=== PATIENT | male | born 1955 | race Hispanic/Latino ===

== ENCOUNTER 2016-11-21 09:43 | Emergency (ER) | payer OTHER ==
[2016-11-21 09:56] VITALS: BMI 27.1
[2016-11-21 09:57] VITALS: RESP 18
[2016-11-21] MEDS ORDERED: DiphenhydrAMINE 50 mg/ml Inj IVP STA (10:34)
--- NOTE | 2016-11-21 10:34 | C.PDOC ---
History Of Present Illness The patient with a PMHx of Afib, reports 3 day history of dizziness, which is described as the room spinning. Patient states that the symptoms are associated with nausea and have worsened today prompting visit. Denies fever, vomiting, diarrhea, head injury/headache, LOC, abdominal pain, back pain, chest pain, SOB , numbness, vision change, or weakness. Time Seen by Provider: 11/21/16 10:24 Chief Complaint (Nursing): Dizziness/Lightheaded Past Medical History Vital Signs: Last Vital Signs Temp 98 F 11/21/16 12:57 Pulse 60 11/21/16 12:57 Resp 18 11/21/16 12:57 BP 111/65 11/21/16 12:57 Pulse Ox 96 11/21/16 12:57 - Medical History PMH: Atrial Fibrillation, HTN Family History: States: No Known Family Hx - Social History Hx Alcohol Use: Yes Hx Substance Use: No - Immunization History Hx Tetanus Toxoid Vaccination: No Hx Influenza Vaccination: No Hx Pneumococcal Vaccination: No Review Of Systems Except As Marked, All Systems Reviewed And Found Negative. Physical Exam - Physical Exam Appears: Non-toxic Skin: Normal Color, Warm, Dry, No Rash Head: Atraumatic, Normacephalic Eye(s): bilateral: Normal Inspection, PERRL, EOMI, Other (No nystagmus) Ear(s): Bilateral: Normal Nose: Normal Throat: Normal, No Erythema, No Exudate Neck: Normal, Normal ROM, Supple Chest: Symmetrical, No Tenderness Cardiovascular: Rhythm Regular, No Friction Rub, No Murmur Respiratory: Normal Breath Sounds, No Stridor, No Wheezing Gastrointestinal/Abdominal: Normal Exam, Soft, No Tenderness Back: Normal Inspection, No CVA Tenderness Extremity: Normal ROM, No Pedal Edema, No Deformity Neurological/Psych: Normal Speech, Normal Cognition, Normal Motor, Normal Sensation Gait: Steady ED Course And Treatment - Laboratory Results Result Diagrams: 11/21/16 11:03 11/21/16 10:35 Lab Interpretation: Normal ECG: Interpreted By Me ECG Rhythm: Sinus Rhythm ECG Interpretation: Normal Interpretation Of ECG: normal axis Rate From EC (bpm) O2 Sat by Pulse Oximetry: 97 (on RA) Pulse Ox Interpretation: Normal Medical Decision Making Medical Decision Making: Initial Plan: --Head w/o Contrast [CT] --EKG --Drug screen, Urine --Benadryl 25 mg IVP --Reglan 10 mg IVP --Urinalysis On re-exam, the patient reports improvement of symptoms. Lungs are CTA, heart is RRR, abdomen is soft, non-tender Abdomen is soft, non-tender and patient is tolerating PO well. Ambulatory in the ED with steady gait. Follow up with the medical doctor within 1-2 days. Return if worsened. Scribe Attestation Written by Navid Leal acting as a scribe for Alexia ROD All medical record entries made by the Scribe were at my direction and personally dictated by me. I have reviewed the chart and agree that the record accurately reflects my personal performance of the history, physical exam, medical decision making, and the department course for this patient. I have also personally directed, reviewed, and agree with the discharge instructions and disposition. Disposition - Disposition Referrals: Adriano Thibodeaux MD [Medical Doctor] - Disposition: HOME/ ROUTINE Disposition Time: 12:20 Condition: GOOD Additional Instructions: Follow up with the medical doctor within 1-2 days. Return if worsened. Prescriptions: Meclizine HCl 25 mg PO TID PRN #15 tablet PRN Reason: Dizziness Instructions: Vertigo (ED) Forms: [employer] (Hungarian) - Clinical Impression Clinical Impression: Dizziness
[2016-11-21] MEDS ORDERED: DiphenhydrAMINE 50 mg/ml Inj ONE (10:42)
[2016-11-21 11:02] LABS: BASO % 0.2 % (0.0-2.0); EOS # 0.2 K/uL (0.0-0.7); EOS % 2.7 % (0.0-4.0); HEMATOCRIT 45.5 % (35.0-51.0); LYMPH # 0.8 K/uL (1.0-4.3); LYMPH % 14.8 % (20.0-40.0); MEAN CELL VOLUME 92.4 fL (80.0-94.0); MEAN CORPUSCULAR HEMOGLOBIN 32.2 pg (27.0-31.0); MEAN CORPUSCULAR HGB CONC 34.8 g/dL (33.0-37.0); MEAN PLATELET VOLUME 8.8 fL (7.2-11.7); MONO # 0.6 K/uL (0.0-0.8); MONO % 10.4 % (0.0-10.0); WHITE BLOOD COUNT 5.7 K/uL (4.8-10.8)
[2016-11-21 11:08] LABS: CHLORIDE 102 mmol/L (98-107); SODIUM 142 mmol/L (132-148)
[2016-11-21 11:10] LABS: ALKALINE PHOSPHATASE 67 U/L (38-126); AST/SGOT 18 U/L (17-59); BILIRUBIN,TOTAL 0.6 mg/dL (0.2-1.3); CARBON DIOXIDE 25 mmol/L (22-30); GFR AFRICAN-AMERICAN > 60; TOTAL PROTEIN 6.8 g/dL (6.3-8.3)
[2016-11-21 11:11] LABS: ALB/GLOB RATIO 1.5 (1.0-2.1); ALT/SGPT 39 U/L (21-72); BLOOD UREA NITROGEN 18 mg/dL (9-20); CALCIUM 9.2 mg/dl (8.6-10.4); GLUCOSE,RANDOM 104 mg/dL (75-110)
--- NOTE | 2016-11-21 11:36 | CT ---
PROCEDURE: CT HEAD WITHOUT CONTRAST. HISTORY: dizziness, lightheadedness COMPARISON: None available. TECHNIQUE: Axial computed tomography images were obtained through the head/brain without intravenous contrast. Radiation dose: Total exam DLP = 1008 mGy-cm. This CT exam was performed using one or more of the following dose reduction techniques: Automated exposure control, adjustment of the mA and/or kV according to patient size, and/or use of iterative reconstruction technique. FINDINGS: HEMORRHAGE: No intracranial hemorrhage. BRAIN: No mass effect or edema. Scattered focal lucencies in the subcortical and periventricular white matter suggestive for chronic microvascular ischemic change. VENTRICLES: Unremarkable. No hydrocephalus. CALVARIUM: Unremarkable. PARANASAL SINUSES: Large 2.0 x 2.0 centimeter mucosal retention cyst and or polyp in the right maxillary sinus. MASTOID AIR CELLS: Unremarkable as visualized. No inflammatory changes. OTHER FINDINGS: None. IMPRESSION: Mild chronic microvascular ischemic change. Large 2 centimeter mucosal retention cyst and or polyp in the right maxillary sinus. If focal neurologic deficit persists, consider further evaluation with MRI.
[2016-11-21 11:54] LABS: RBC URINE 2 /hpf (0-3); URINE BILIRUBIN NEGATIVE (NEGATIVE); URINE BLOOD NEGATIVE (NEGATIVE); URINE COLOR Yellow (YELLOW); URINE GLUCOSE (UA) NORMAL (Normal); URINE KETONE NEGATIVE (NEGATIVE); URINE LEUKOCYTE ESTERASE NEG Leu/uL (Negative); URINE PROTEIN NEGATIVE (NEGATIVE); URINE UROBILINOGEN NORMAL mg/dL (0.2-1.0)
[2016-11-21 12:59] VITALS: BP 111/65; PULSE 60; TEMP 98
[2016-11-21 17:58] VITALS: O2SAT 97
--- NOTE | 2016-11-23 21:58 | CARD ---
APPROVED REPORT EKG Measurement Heart [id number] <Conclusion> Sinus rhythm with 1st degree AV block Otherwise normal ECG
== END 2016-11-21 12:25 | disposition home or self-care (01) ==
LOC: C.ER 09:43
DX: R42 Dizziness and giddiness (principal)
CPT/HCPCS: 70450; 80053; 80324; 80345; 80346; 80349; 80353; 80358; 80361; 81001; 83992; 85025; 93005; 96374; 96375; 99285; J1200; J2765

== ENCOUNTER 2018-07-28 06:26 | Day surgery (SDC) | payer OTHER ==
[2018-07-27 11:30] VITALS: BMI 27.4
[2018-07-28] MEDS ORDERED: Lactated Ringer's 500 ML IV ONE (08:05)
[2018-07-28] MEDS ORDERED: Propofol 10 mg/ml Inj (20 ML) ONE ×2 (08:09→08:24)
[2018-07-28 08:56] VITALS: TEMP 98
[2018-07-28 08:57] VITALS: O2SAT 100
[2018-07-28 09:33] VITALS: BP 135/72; PULSE 68; RESP 20
== END 2018-07-28 09:30 | disposition home or self-care (01) ==
LOC: C.ENDO 06:26
PROVIDERS: ATTEND Internal Medicine Gastroenterology
DX: D12.2 Benign neoplasm of ascending colon (principal); Z12.11 Encounter for screening for malignant neoplasm of colon; Z80.0 Family history of malignant neoplasm of digestive organs; D12.4 Benign neoplasm of descending colon; K63.89 Other specified diseases of intestine; K57.30 Diverticulosis of large intestine without perforation or abscess without bleeding; K64.2 Third degree hemorrhoids; I10 Essential (primary) hypertension; E78.5 Hyperlipidemia, unspecified; E03.9 Hypothyroidism, unspecified
CPT/HCPCS: 45380; 45385; 88305; J2704; J7120